=== PATIENT | female | born 1985 | race African-American/Black ===

== ENCOUNTER 2019-11-30 09:26 | Outpatient (CLI) | payer MEDICAID ==
--- NOTE | 2019-11-30 09:53 | ULT ---
Pelvic sonogram transvaginal imaging with duplex evaluation HISTORY: Dyspareunia. FINDINGS: Urinary bladder is decompressed. Uterus has a slightly heterogeneous echotexture and measur es up to 3.9 cm. Endometrium is 0.4 cm. Small nabothian cysts arise from the cervix. No free fluid. Right ovary is 2.7 cm and the left 3.1 cm. Each contains follicles and demonstrates good color and sp ectral Doppler flow. IMPRESSION: No abnormalities are demonstrated.
== END 2019-11-30 09:27 | disposition home or self-care (01) ==
LOC: BICULT 09:26
PROVIDERS: ATTEND Nurse Practitioner Women's Health
DX: N94.12 Deep dyspareunia (principal)
CPT/HCPCS: 76856